=== PATIENT | female | born 1950 | race Caucasian/White ===

== ENCOUNTER 2022-02-06 17:15 | Observation (INO) | payer MEDICARE, OTHER ==
[~2022-02-06] VITALS: Ht 175.3 cm; Wt 72.6 kg
[~2022-02-06 17:15] MED LIST: ALLERGRA PO; FLUTICASONE PO; LEVOTHYROXINE125 MCG PO; MUCINEX DM PO; PROPRANOLOL HCL80 M1 PO
[2022-02-06 18:12] LABS: BASOPHILS # (AUTO) 0.1 (0.0-0.1); BASOPHILS % 0.9 % (0.0-1.0); EOSINOPHILS # (AUTO) 0.4 (0.0-0.4); EOSINOPHILS % 4.8 % (0.0-6.0); HEMATOCRIT 41.9 % (34.2-44.1); HEMOGLOBIN 13.6 g/dL (12.0-16.0); LYMPHOCYTES # (AUTO) 1.3 (1.0-3.2); LYMPHOCYTES % 17.1 % (18.0-39.1); MEAN CORPUSCULAR HEMOGLOBIN 28.7 pg (28-32); MEAN CORPUSCULAR HGB CONC 32.5 g/dL (31-35); MEAN CORPUSCULAR VOLUME 88.4 fL (81-99); MONOCYTES # (AUTO) 0.7 (0.2-0.8); MONOCYTES % 8.8 % (4.4-11.3); NEUTROPHILS # (AUTO) 5.3 (2.1-6.9); NEUTROPHILS % 68.3 % (38.7-80.0); PLATELET COUNT 193 x10e3/uL (140-360); RED BLOOD COUNT 4.74 x10e6/uL (3.6-5.1); RED CELL DISTRIBUTION WIDTH 15.4 % (11.7-14.4)
[2022-02-06 18:21] LABS: INR 0.99
[2022-02-06 18:28] LABS: ALBUMIN 3.8 g/dL (3.5-5.0); ALBUMIN/GLOBULIN RATIO 0.9 (0.8-2.0); CALCIUM 9.4 mg/dL (8.4-10.2); CREATININE, SERUM 0.91 mg/dL (0.57-1.11)
[2022-02-06] MEDS: SODIUM CHLORIDE 0.9% 1000ML 1,000 ML IV SCH (20:46)
[2022-02-06 20:47] LABS: CREATINE KINASE 71 IU/L (29-168)
[2022-02-06] MEDS ORDERED: LINEZOLID100 MG/5 M (21:24)
[2022-02-06] MEDS ORDERED: MYRBETRIQ25 MG PO (21:24)
[2022-02-06] MEDS ORDERED: AZITHROMYCIN500 M1 (21:24)
[2022-02-06] MEDS ORDERED: CLOFAZIMINE1 GM (21:24)
[2022-02-06] MEDS ORDERED: SODIUM CHLORIDE3 ML NEB (21:24)
[2022-02-06] MEDS ORDERED: LEVOTHYROXINE88 MCG PO (21:24)
[2022-02-06 23:55] VITALS: BP 140/64
[2022-02-06] MEDS ORDERED: ZITHROMAX500 MG PO (23:58)
[2022-02-06] MEDS ORDERED: OMEPRAZOLE40 MG PO (23:58)
[2022-02-06] MEDS ORDERED: [UNRECOGNIZED DRUG - OTHER] INH (23:58)
[2022-02-06] MEDS ORDERED: [UNRECOGNIZED DRUG - OTHER] PO (23:58)
[2022-02-06] MEDS ORDERED: ZYVOX600 MG PO (23:58)
[2022-02-07] VITALS (8 sets, daily range): BP systolic 119–139; BP diastolic 60–71
[2022-02-07 05:06] LABS: BASOPHILS % 0.3 % (0.0-1.0); EOSINOPHILS % 0.5 % (0.0-6.0); HEMATOCRIT 40.3 % (34.2-44.1); HEMOGLOBIN 13.2 g/dL (12.0-16.0); LYMPHOCYTES # (AUTO) 0.5 (1.0-3.2); LYMPHOCYTES % 6.2 % (18.0-39.1); MEAN CORPUSCULAR HEMOGLOBIN 28.6 pg (28-32); MEAN CORPUSCULAR HGB CONC 32.8 g/dL (31-35); MEAN CORPUSCULAR VOLUME 87.2 fL (81-99); MONOCYTES # (AUTO) 0.1 (0.2-0.8); MONOCYTES % 1.1 % (4.4-11.3); NEUTROPHILS % 91.6 % (38.7-80.0); PLATELET COUNT 167 x10e3/uL (140-360); RED BLOOD COUNT 4.62 x10e6/uL (3.6-5.1); RED CELL DISTRIBUTION WIDTH 15.4 % (11.7-14.4)
[2022-02-07 05:43] LABS: CREATINE KINASE MB 1.8 ng/mL (0-5.0)
[2022-02-07 05:53] LABS: ALBUMIN 3.6 g/dL (3.5-5.0); ANION GAP 11.5 mmol/L (8-16); CALCIUM 8.6 mg/dL (8.4-10.2); CREATININE, SERUM 0.75 mg/dL (0.57-1.11); POTASSIUM 3.5 mmol/L (3.5-5.1)
[2022-02-07] MEDS ORDERED: IOPAMIDOL 370 MG/ML 100 ML INFUS..BTL INJ ONE (06:04)
[2022-02-07] MEDS: METHYLPREDNISOLONE SOD SUCC 40 MG/ML VIAL 1ML IV SCH ×4 (06:43→17:57)
[2022-02-07] MEDS: SODIUM CHLORIDE 0.9% 1000ML 1,000 ML IV SCH ×2 (06:43→12:26)
[2022-02-07] MEDS: LEVOTHYROXINE SODIUM 88 MCG TAB PO SCH (06:43)
[2022-02-07] MEDS: FAMOTIDINE 20 MG TAB PO SCH ×2 (07:30→16:30)
[2022-02-07] MEDS ORDERED: LEVOTHYROXINE SODIUM 125 MCG TAB PO SCH (09:00)
[2022-02-07] MEDS: LORATADINE 10 MG TAB PO SCH (09:00)
[2022-02-07] MEDS: PROPRANOLOL HCL 40 MG TAB PO SCH (09:00)
[2022-02-07] MEDS ORDERED: ONDANSETRON HCL INJ 2MG/ML 2ML 2 MG/ML VIAL IV PRN (12:00)
[2022-02-07] MEDS ORDERED: ACETAMINOPHEN 325 MG TAB PO PRN (12:00)
[2022-02-07 14:47] LABS: CREATINE KINASE MB 2.7 ng/mL (0-5.0)
[2022-02-07] MEDS: FLUTICASONE/SALMETEROL 115/21 12 GM AERO IH SCH (19:00)
[2022-02-07] MEDS ORDERED: CLOFAZIMINE PO (21:42)
[2022-02-07] MEDS ORDERED: PROPRANOLOL HCL 80 MG CAPCR PO ONE (21:45)
[2022-02-08] VITALS: BP 109/87
[2022-02-08 00:37] VITALS: BP 109/87
[2022-02-08 04:00] VITALS: BP 108/55
[2022-02-08] MEDS: METHYLPREDNISOLONE SOD SUCC 40 MG/ML VIAL 1ML IV SCH ×2 (06:00)
[2022-02-08] MEDS: LEVOTHYROXINE SODIUM 88 MCG TAB PO SCH (06:00)
[2022-02-08] MEDS: FLUTICASONE/SALMETEROL 115/21 12 GM AERO IH SCH (06:11)
[2022-02-08 06:31] LABS: BASOPHILS % 0.1 % (0.0-1.0); HEMATOCRIT 42.7 % (34.2-44.1); HEMOGLOBIN 13.7 g/dL (12.0-16.0); LYMPHOCYTES # (AUTO) 0.7 (1.0-3.2); LYMPHOCYTES % 5.3 % (18.0-39.1); MEAN CORPUSCULAR HEMOGLOBIN 28.7 pg (28-32); MEAN CORPUSCULAR HGB CONC 32.1 g/dL (31-35); MEAN CORPUSCULAR VOLUME 89.3 fL (81-99); MONOCYTES # (AUTO) 0.2 (0.2-0.8); MONOCYTES % 1.7 % (4.4-11.3); NEUTROPHILS # (AUTO) 12.8 (2.1-6.9); NEUTROPHILS % 92.7 % (38.7-80.0); PLATELET COUNT 190 x10e3/uL (140-360); RED BLOOD COUNT 4.78 x10e6/uL (3.6-5.1); RED CELL DISTRIBUTION WIDTH 15.7 % (11.7-14.4)
[2022-02-08 07:23] VITALS: BP 129/76
[2022-02-08] MEDS ORDERED: PANTOPRAZOLE SOD 40 MG TABEC PO SCH (07:30)
[2022-02-08] MEDS: FAMOTIDINE 20 MG TAB PO SCH (08:00)
[2022-02-08 09:00] VITALS: BP 129/76
[2022-02-08] MEDS ORDERED: (Mirabegron (Myrbetriq) 25 MG) PO SCH (09:00)
[2022-02-08] MEDS ORDERED: LINEZOLID 600 MG TAB PO SCH (09:00)
[2022-02-08] MEDS: PROPRANOLOL HCL 40 MG TAB PO SCH (10:00)
[2022-02-08] MEDS: LORATADINE 10 MG TAB PO SCH (10:00)
[2022-02-08 11:29] VITALS: BP 140/69
[2022-02-08] MEDS ORDERED: CLOFAZIMINE PO SCH (17:00)
== END 2022-02-08 15:20 | disposition home or self-care (01) ==
LOC: ER 17:35 → ERHOLD 20:47 → MED/SURG2 22:44
PROVIDERS: ADMIT Internal Medicine; ATTEND Internal Medicine
DX: R04.2 Hemoptysis (principal); A31.0 Pulmonary mycobacterial infection; J47.9 Bronchiectasis, uncomplicated; E03.9 Hypothyroidism, unspecified; K21.9 Gastro-esophageal reflux disease without esophagitis; Z20.822 Contact with and (suspected) exposure to COVID-19
CPT/HCPCS: 36415 ×3; 71260; 80053 ×2; 82550 ×2; 82553 ×2; 84484 ×2; 85025 ×3; 85610; 93005; 94799 ×2; 97139; 99284; G0378 ×3; J0456 ×2; J2920 ×2; J7030 ×2; J7050 ×2; Q9967; S0164; U0002

== ENCOUNTER 2022-10-13 15:13 | Outpatient (RCR) | payer MEDICARE ==
[~2022-10-13 15:13] MED LIST changes: +AZITHROMYCIN500 M1; +CLOFAZIMINE PO; +CLOFAZIMINE1 GM; +LEVOTHYROXINE88 MCG PO; +LINEZOLID100 MG/5 M; +MYRBETRIQ25 MG PO; +OMEPRAZOLE40 MG PO; +SODIUM CHLORIDE3 ML NEB; +ZITHROMAX500 MG PO; +ZYVOX600 MG PO; +[UNRECOGNIZED DRUG - OTHER] INH; +[UNRECOGNIZED DRUG - OTHER] PO
== END 2022-11-04 ==
LOC: RESP 15:13
PROVIDERS: ATTEND Family Medicine
DX: J47.9 Bronchiectasis, uncomplicated (principal)

== ENCOUNTER 2023-01-12 10:58 | Outpatient (RCR) | payer MEDICARE | END 2023-02-01 | LOC: RESP 10:58 | PROVIDERS: ATTEND Internal Medicine | DX: J47.9 Bronchiectasis, uncomplicated (principal) | CPT/HCPCS: 94626 ×6; G0238 ×6 ==

== ENCOUNTER 2023-02-02 12:24 | Outpatient (RCR) | payer MEDICARE | END 2023-03-04 | LOC: RESP 12:24 | PROVIDERS: ATTEND Internal Medicine | DX: J47.9 Bronchiectasis, uncomplicated (principal) | CPT/HCPCS: 94626 ×8; G0238 ×8 ==

== ENCOUNTER 2023-03-09 10:03 | Outpatient (RCR) | payer MEDICARE | END 2023-04-03 | LOC: RESP 10:03 | PROVIDERS: ATTEND Family Medicine | DX: J47.9 Bronchiectasis, uncomplicated (principal) | CPT/HCPCS: 94626 ×8; G0238 ×8 ==

== ENCOUNTER 2024-01-07 13:57 | Outpatient (RCR) | payer MEDICARE | END 2024-02-02 | LOC: RESP 13:57 | PROVIDERS: ATTEND Internal Medicine | DX: J47.9 Bronchiectasis, uncomplicated (principal) ==

== ENCOUNTER 2024-03-09 15:28 | Outpatient (RCR) | payer MEDICARE | END 2024-04-03 | LOC: RESP 15:28 | PROVIDERS: ATTEND Internal Medicine | DX: J47.9 Bronchiectasis, uncomplicated (principal) | CPT/HCPCS: 94626 ×7; G0238 ×7 ==

== ENCOUNTER 2024-04-04 13:38 | Outpatient (RCR) | payer MEDICARE | END 2024-05-04 | LOC: RESP 13:38 | PROVIDERS: ATTEND Family Medicine | DX: J47.9 Bronchiectasis, uncomplicated (principal) | CPT/HCPCS: 94626 ×2; G0238 ×2 ==

== ENCOUNTER → 2024-08-04 | Outpatient (RCR) | payer MEDICARE | LOC: RESP 07-06 15:01 | PROVIDERS: ATTEND Family Medicine | DX: J47.9 Bronchiectasis, uncomplicated (principal) | CPT/HCPCS: 94626 ×9; G0238 ×9 ==

== ENCOUNTER 2024-08-25 15:00 | Outpatient (RCR) | payer MEDICARE | END 2024-09-03 | LOC: RESP 15:00 | PROVIDERS: ATTEND Internal Medicine | DX: J47.9 Bronchiectasis, uncomplicated (principal) | CPT/HCPCS: 94626 ×6; G0238 ×6 ==